=== PATIENT | female | born 2000 | race American Indian/Alaskan Native ===

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

== ENCOUNTER 2022-04-29 18:44 | Emergency (ER) | payer MEDICAID ==
[~2022-04-29] VITALS: Ht 172.7 cm; Wt 81.6 kg
[2022-04-29 19:34] VITALS: BP_SYST 112
--- NOTE | 2022-04-29 19:39 | NUR ---
Patient triaged and placed in waiting room. VS checked and patient appears in no acute distress at this time. Accompanied by family , awaiting available bed, and MD notified of need for MSE.
--- NOTE | 2022-04-29 19:59 | NUR ---
MD Valdes at bedside examining pt.
[2022-04-29] MEDS ORDERED: NACL 0.9% 1,000 ML IV ONE (21:00)
--- NOTE | 2022-04-29 21:01 | NUR ---
Vivek acharya in [facility] - 04/29/22 at 2113 by [id number] MD Valdes at bedside for imaging.
--- NOTE | 2022-04-29 21:10 | NUR ---
# 22 gauge angiocath placed to R HAND. Use of asceptic technique. Opsite placed over site. Blood return noted. Flushed with 10 cc of normal saline. No evidence of infiltration noted. Patient tolerated well.
--- NOTE | 2022-04-29 21:12 | NUR ---
RAD at bedside for imaging.
[2022-04-29 21:15] LABS: BASOPHILS % (AUTO) 0.4 % (0.0-2.0); EOSINOPHILS % (AUTO) 0.5 % (0.0-4.0); HEMATOCRIT 39.6 % (36-48); HEMOGLOBIN 13.8 g/dL (12.0-16.0); LYMPHOCYTES # (AUTO) 0.6 K/uL (1.0-5.5); LYMPHOCYTES % (AUTO) 10.4 % (20.5-51.5); MEAN CORPUSCULAR HEMOGLOBIN 33 pg (27-31); MEAN CORPUSCULAR HGB CONC 35 % (32-36); MEAN CORPUSCULAR VOLUME 95 fL (79.0-98.0); MONOCYTES # (AUTO) 0.6 K/uL (0.0-1.0); MONOCYTES % (AUTO) 9.8 % (1.7-9.3); NEUTROPHILS # (AUTO) 4.7 K/uL (1.8-7.7); NEUTROPHILS % (AUTO) 78.9 % (40.0-70.0); PLATELET COUNT (AUTO) 187 K/uL (130-430); RED BLOOD CELL COUNT(AUTO) 4.18 MIL/uL (4.2-6.2); RED CELL DISTRIBUTION WIDTH 12.9 % (9.0-15.0)
[2022-04-29] MEDS ORDERED: ACETAMINOPHEN 500 MG TABLET PO ONE (21:15)
[2022-04-29 21:27] LABS: CALCIUM 9.2 mg/dL (8.4-11.0); CREATININE 0.81 mg/dL (0.55-1.30)
[2022-04-29 21:32] LABS: TOTAL BILIRUBIN 0.1 mg/dL (0.0-1.0)
[2022-04-29 21:34] LABS: BILIRUBIN,URINE NEGATIVE (NEGATIVE); CLARITY/URINE CLEAR (CLEAR); COLOR,URINE YELLOW (YELLOW); GLUCOSE,URINE NEGATIVE (NEGATIVE); KETONES,URINE NEGATIVE (NEGATIVE); LEUKOCYTE ESTERASE ,URINE NEGATIVE (NEGATIVE); NITRITE, URINE NEGATIVE (NEGATIVE); PROTEIN URINE NEGATIVE (NEGATIVE); UROBILINOGEN,URINE 0.2 (0.2-1.0)
[2022-04-29 21:37] LABS: BLOOD, URINE TRACE (NEGATIVE)
[2022-04-29 21:42] LABS: WBC,URINE NONE SEEN /HPF (0-3)
[2022-04-29 21:43] LABS: BACTERIA,URINE RARE /HPF (None Seen); MUCUS,URINE 1+ /LPF (None Seen)
--- NOTE | 2022-04-29 22:30 | NUR ---
COVID AND FLU SAMPLE COLLECTED AND SENT TO LAB
[2022-04-29] MEDS ORDERED: ACET-2634 PO (23:04)
[2022-04-29] MEDS ORDERED: OSEL75CA PO (23:04)
[2022-04-29 23:10] VITALS: BP_SYST 110
--- NOTE | 2022-04-29 23:11 | NUR ---
Patient given written and verbal discharge instructions and verbalizes understanding. ER MD Valdes discussed with patient the results and treatment provided. Patient in stable condition. ID arm band removed. IV catheter removed intact and dressing applied, no active bleeding. Rx of Acetaminophen and Tamiflu sent to preferred pharmacy. Patient educated on pain management and to follow up with PMD. Opportunity for questions provided and answered. Medication side effect fact sheet provided.
== END 2022-04-29 23:10 | disposition home or self-care (01) ==
LOC: EDBD 18:44 → SED 18:44
DX: B34.9 Viral infection, unspecified (principal); R50.9 Fever, unspecified; J02.9 Acute pharyngitis, unspecified; F17.200 Nicotine dependence, unspecified, uncomplicated; Z79.899 Other long term (current) drug therapy; Z20.822 Contact with and (suspected) exposure to COVID-19
CPT/HCPCS: 99284; 96360; 71045; 87426; 80053; 81000; 85025; 87040; 36415; 81025; 87804 ×2; J7030